=== PATIENT | female | born 1960 | race Caucasian/White ===

== ENCOUNTER → 2016-10-19 | Outpatient (CLI) | payer BC ==
[~2016-10-19] MED LIST: CALCIUM 500500 M2 PO; CALCIUM 600MG+D1 TAB PO; CELEBREX 200MG200 MG PO; CENTRUM SILVER1 TAB PO; LEVAQUIN 250MG250 MG PO; MICRO-K 1010 MEQ PO; PANTOPRAZOLE40 MG PO; PREMPRO 0.3 MG-1 TAB PO; SKELAXIN800 MG PO; VITAMIN D1000 IU PO
== END ==
LOC: MC.RAD 12:54
DX: D24.2 Benign neoplasm of left breast (principal)

== ENCOUNTER → 2017-07-06 | Outpatient (CLI) | payer BC | LOC: COL.CARD 06:44 | DX: R07.9 Chest pain, unspecified (principal); R06.02 Shortness of breath ==

== ENCOUNTER → 2017-10-26 | Outpatient (CLI) | payer BC | LOC: MC.RAD 13:25 | DX: Z12.31 Encounter for screening mammogram for malignant neoplasm of breast (principal); N63.20 Unspecified lump in the left breast, unspecified quadrant; N63.10 Unspecified lump in the right breast, unspecified quadrant ==

== ENCOUNTER → 2017-11-02 | Outpatient (CLI) | payer BC | LOC: MC.RAD 12:55 | DX: N60.01 Solitary cyst of right breast (principal); N60.02 Solitary cyst of left breast; N63.42 Unspecified lump in left breast, subareolar; N63.13 Unspecified lump in the right breast, lower outer quadrant ==

== ENCOUNTER 2018-07-25 10:51 | Outpatient (RCR) | payer BC | END 2018-08-28 12:39 | disposition home or self-care (01) | LOC: WSPT 10:51 | DX: M76.9 Unspecified enthesopathy, lower limb, excluding foot (principal) ==

== ENCOUNTER → 2018-10-28 | Outpatient (CLI) | payer BC | LOC: MC.RAD 15:13 | DX: Z12.31 Encounter for screening mammogram for malignant neoplasm of breast (principal) ==

== ENCOUNTER → 2019-11-13 | Outpatient (CLI) | payer BC | LOC: MC.RAD 16:21 | DX: Z12.31 Encounter for screening mammogram for malignant neoplasm of breast (principal); N63.10 Unspecified lump in the right breast, unspecified quadrant; N63.20 Unspecified lump in the left breast, unspecified quadrant ==

== ENCOUNTER 2020-07-19 08:04 | Day surgery (SDC) | payer BC ==
[2020-07-19] VITALS (9 sets, daily range): BP systolic 116–131; BP diastolic 58–68; PULSE 46–62; TEMP 97.5
[~2020-07-19] VITALS: Ht 170.3 cm; Wt 102.7 kg
[~2020-07-19 08:04] MED LIST changes: -PANTOPRAZOLE40 MG PO; +PROTONIX 40MG T40 MG PO
[2020-07-19] MEDS ORDERED: CARDIZEM CD 12120 MG PO ×2 (08:19→09:19)
[2020-07-19 08:52] LABS: PROTHROMBIN TIME 11.6 SECONDS (9.7-12.8)
[2020-07-19 08:53] LABS: HEMATOCRIT 42.4 % (37.0-47.0); MEAN CELL VOLUME 93 fl (80.0-100.0); MEAN CORPUSCULAR HEMOGLOBIN 31 pg (27.0-31.0); MEAN CORPUSCULAR HGB CONC 33 g/dl (33.0-37.0); MEAN PLATELET VOLUME 10.5 fl (7.4-10.4); PLATELET COUNT 249 K/mm3 (130-400); RED BLOOD COUNT 4.54 M/mm3 (4.10-5.30); REDCELL DISTRIBUTION WIDTH-CV 12.5 % (11.5-14.5)
[2020-07-19 08:54] LABS: PARTIAL THROMBOPLASTIN TIME 33.2 SECONDS (26.0-37.0)
[2020-07-19 09:14] LABS: CALCIUM 9.6 mg/dL (8.4-10.2); CREATININE, serum 0.9 (0.52-1.25)
[2020-07-19] MEDS ORDERED: PRIL40 PO (09:18)
[2020-07-19] MEDS ORDERED: D3-5050000 IU PO (09:20)
--- NOTE | 2020-07-19 10:46 | NUR ---
SEE MEREGE FOR ALL MEDICATION ADMIN. TIMES AND INTRA/POST SEDATION ASSESSMENT
--- NOTE | 2020-07-19 11:04 | NUR ---
Report from Lidia CHUNG. 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 Drowsy, but oriented. VSS. Right Tband with 12 cc air, good pulses and cap refill < 3 secs. Call light within reach, Aunt bedside.
--- NOTE | 2020-07-19 13:17 | NUR ---
Right Tband deflated of 12 cc air and pressure dressing applied. INT discontinued intact. Ambulated to bathroom with steady gait
--- NOTE | 2020-07-19 13:32 | NUR ---
Discharge instructions given. Transferred to private car by tyler
== END 2020-07-19 13:33 | disposition home or self-care (01) ==
LOC: COL.CAR 08:04
PROVIDERS: Internal Medicine Cardiovascular Disease
DX: R07.89 Other chest pain (principal); Z20.828 Contact with and (suspected) exposure to other viral communicable diseases; E78.5 Hyperlipidemia, unspecified; J44.9 Chronic obstructive pulmonary disease, unspecified; K21.9 Gastro-esophageal reflux disease without esophagitis; I34.0 Nonrheumatic mitral (valve) insufficiency; E66.8 Other obesity; R00.2 Palpitations; K44.9 Diaphragmatic hernia without obstruction or gangrene; G62.9 Polyneuropathy, unspecified; E55.9 Vitamin D deficiency, unspecified; M81.0 Age-related osteoporosis without current pathological fracture; M19.90 Unspecified osteoarthritis, unspecified site; Z88.8 Allergy status to other drugs, medicaments and biological substances; Z87.891 Personal history of nicotine dependence; Z79.899 Other long term (current) drug therapy
CPT/HCPCS: J1644; J2250; J3010

== ENCOUNTER → 2020-09-30 | Outpatient (CLI) | payer BC ==
[~2020-09-30] MED LIST changes: +CARDIZEM CD 12120 MG PO; +D3-5050000 IU PO; +PRIL40 PO
== END ==
LOC: MC.RAD 10:45
DX: N63.10 Unspecified lump in the right breast, unspecified quadrant (principal); Z95.818 Presence of other cardiac implants and grafts

== ENCOUNTER → 2021-12-06 | Outpatient (CLI) | payer BC | LOC: MC.RAD 11:26 | DX: Z12.31 Encounter for screening mammogram for malignant neoplasm of breast (principal) ==